=== PATIENT | female | born 1985 | race Two or more races ===

== ENCOUNTER 2025-03-24 17:39 | Emergency (ER) | payer BC, MEDICAID, SELFPAY ==
[2025-03-24 17:41] VITALS: BMI 32.6
[2025-03-24 17:59] VITALS: BP 150/91; PULSE 82; RESP 18; TEMP 36.8; O2SAT 99
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
[2025-03-24 18:58] LABS: HCG Qualitative,Urine Negative
[2025-03-24 19:04] LABS: Amphetamine/Methamp Scrn,U Negative (Negative); Barbiturate Screen,Urine Negative (Negative); Benzodiazepines Screen,Urine Negative (Negative); Benzoylecgonine Screen, Ur Negative (Negative); Fentanyl Screen,Urine Negative (Negative); Opiate Screen,Urine Negative (Negative); THC Screen,Urine Negative (Negative)
== END 2025-03-24 19:21 | disposition home or self-care (01) ==
PROVIDERS: Physician Assistant; Emergency Provider Emergency Medicine
DX: Z01.89 Encounter for other specified special examinations (principal); E03.9 Hypothyroidism, unspecified
CPT/HCPCS: 80307; 81025; 99283